=== PATIENT | male | born 1970 | race American Indian/Alaskan Native ===

== ENCOUNTER 2019-08-12 06:35 | Emergency (ER) | payer OTHER ==
--- NOTE | 2019-08-12 07:18 | XRay Report ---
Left foot 3 views INDICATION: Left foot pain. IMPRESSION: No fracture or subluxation. Signer Name: Jluis Avila MD Signed: 08/12/2019 7:14 AM Workstation Name: [id number]
--- NOTE | 2019-08-12 08:59 | Emergency Department Report ---
ED Lower Extremity HPI - General Chief Complaint: Extremity Injury, Lower Stated Complaint: LT FOOT HEAL INJURY Time Seen by Provider: 08/12/19 08:54 Source: patient Mode of arrival: Ambulatory Limitations: No Limitations - History of Present Illness Initial Comments: Patient injured his left heel while playing basketball yesterday, He heard and felt a "popped sensation" Complaint: foot injury Onset/Timin -: days(s) Injury: Foot: Left Type of Injury: unknown Place: street/outdoors Severity: moderate Severity scale (0 -10): 5 Improves With: rest Worsens With: movement Context: jumping Other Symptoms: other (none) Associated Symptoms: snap/pop sensation. denies: swelling, numbness, tingling, unable to bear weight, able to partially bear weight, ambulatory - Related Data Previous Rx's Medication Instructions Recorded Last Taken Type Naproxen 500 mg PO BID #20 tablet 08/12/19 Unknown Rx Allergies Allergy/AdvReac Type Severity Reaction Status Date / Time No Known Allergies Allergy Unverified 08/12/19 06:42 ED Review of Systems ROS: Stated complaint: LT FOOT HEAL INJURY Other details as noted in HPI Constitutional: denies: chills, fever Eyes: denies: eye pain, eye discharge, vision change ENT: denies: ear pain, throat pain Respiratory: denies: cough, shortness of breath, wheezing Cardiovascular: denies: chest pain, palpitations, dyspnea on exertion, o rthopnea, edema, paroxysmal nocturnal dyspnea Endocrine: no symptoms reported Gastrointestinal: denies: abdominal pain, nausea, vomiting, diarrhea, co nstipation, hematemesis, melena Genitourinary: denies: urgency, dysuria Musculoskeletal: arthralgia (left heel). denies: back pain, joint swelling Skin: denies: rash, lesions Neurological: denies: headache, weakness, paresthesias Psychiatric: denies: anxiety, depression Hematological/Lymphatic: denies: easy bleeding, easy bruising ED Past Medical Hx - Past Medical History Previous Medical History?: No - Surgical History Past Surgical History?: Yes Hx Cholecystectomy: Yes - Social History Smoking Status: Former Smoker Substance Use Type: None - Medications Home Medications: Home Medications Medication Instructions Recorded Confirmed Last Taken Type Naproxen 500 mg PO BID #20 tablet 08/12/19 Unknown Rx ED Physical Exam - General Limitations: No Limitations General appearance: alert, in no apparent distress - Respiratory Respiratory exam: Present: normal lung sounds bilaterally. Absent: respiratory distress, wheezes, rales, rhonchi, stridor, chest wall tenderness, accessory muscle use, decreased breath sounds, prolonged expiratory - Cardiovascular Cardiovascular Exam: Present: regular rate, normal rhythm, normal heart sounds. Absent: bradycardia, irregular rhythm, systolic murmur, diastolic murmur, rubs, gallop - Extremities Exam Extremities exam: Present: normal inspection, full ROM, normal capillary refill. Absent: tenderness, pedal edema, joint swelling, calf tenderness - Expanded Lower Extremity Exam Left Hip exam: Present: normal inspection, full ROM Upper Leg exam: Present: normal inspection, full ROM Knee exam: Present: normal inspection, full ROM Lower Leg exam: Present: normal inspection, full ROM Ankle exam: Present: normal inspection, full ROM Foot/Toe exam: Present: normal inspection, full ROM (negative Maravilla's test), tenderness (heel). Absent: swelling, abrasion, laceration, ecchymosis, dislocation, erythema, amputation, puncture wound, foreign body, calcaneal tenderness, tenderness at base of 5th metatarsal, nail avulsion, subungual hematoma Neuro vascular tendon exam: Present: no vascular compromise. Absent: pulse deficit, abnormal cap refill, motor deficit, sensory deficit, tendon deficit, extremity cold to touch, pallor, abnormal 2-point discrimination, decreased fine/light touch, foot drop, peroneal nerve deficit, significant pain with passive ROM of distal joint Gait: Positive: observed and limited by pain - Neurological Exam Neurological exam: Present: alert, oriented X3, CN II-XII intact, normal gait, reflexes normal, other (no focal neuro deficits). Absent: motor sensory deficit - Psychiatric Psychiatric exam: Present: normal affect, normal mood - Skin Skin exam: Present: warm, dry, intact, normal color. Absent: rash ED Course Vital Signs 08/12/19 09:03 Temperature 98.6 F Pulse Rate 74 Respiratory 18 Rate Blood Pressure 172/116 [Right] O2 Sat by Pulse 98 Oximetry ED Lower Extremity MDM - Lab Data Vital Signs 08/12/19 09:03 Temperature 98.6 F Pulse Rate 74 Respiratory 18 Rate Blood Pressure 172/116 [Right] O2 Sat by Pulse 98 Oximetry - Radiology Data Radiology results: image reviewed Left foot 3 views INDICATION: Left foot pain. IMPRESSION: No fracture or subluxation. - Medical Decision Making During the course of ED, all other systems were unremarkable except for documentation in HPI. Radiology studies revealed no fracture or subluxation left foot. Patient was counseled on treatments for asymptomatic elevated blood pressure, with recommendations for follow-up care. He was sent home with prescription for Naproxen, instructed to follow up with PCP and orthopedic, he verbalized understanding - Differential Diagnosis Left Foot Pain, Fracture, Achilles Tendon Rupture, Elevated Blood Pressure Critical care attestation.: If time is entered above; I have spent that time in minutes in the direct care of this critically ill patient, excluding procedure time. ED Disposition Clinical Impression: Foot pain, left, Elevated blood pressure reading Disposition: TO HOME OR SELFCARE Is pt being admited?: No Does the pt Need Aspirin: No Condition: Stable Instructions: Hypertension (ED), Arthralgia (ED) Additional Instructions: Take medication as directed. Follow up with the selective referral given at discharge. Your blood pressure was elevated today. Follow up with a PCP next week to recheck blood pressure in order to prevent target organ damage such as stroke, paralysis, kidney damages and lungs. The following lifestyle modifications can assist with managing your blood pressure: eat less salt, exercise and maintain a healthy weight, limit alcohol, do not smoke and decrease stress. Return to the emergency department if you have severe headache, vision loss, weakness in an arm or leg, confused, difficulty speaking, chest discomfort, trouble breathing, lightheaded, jaw, back, neck or stomach pain. Prescriptions: Naproxen 500 mg PO BID #20 tablet Referrals: RISA ECHEVARRIA MD [Staff Physician] - 3-5 Days MAYITO ZAMUDIO MD [Staff Physician] - 3-5 Days ALANA DELA CRUZ MD [Staff Physician] - 3-5 Days Forms: Work/School Release Form(ED) Time of Disposition: 08:59
[2019-08-12 09:03] VITALS: BP 172/116
== END 2019-08-12 09:35 | disposition home or self-care (01) ==
LOC: ED 06:35
DX: M79.672 Pain in left foot (principal); I10 Essential (primary) hypertension; Z90.49 Acquired absence of other specified parts of digestive tract; Z87.891 Personal history of nicotine dependence
CPT/HCPCS: 99284